=== PATIENT | male | born 1970 | race Caucasian/White ===

== ENCOUNTER 2017-02-17 21:56 | Emergency (ER) | payer BC ==
[2017-02-17] MEDS ORDERED: Ketorolac 60 MG/2 ML SDV IM ONE (22:11)
--- NOTE | 2017-02-17 22:13 | EDM.PDOC ---
<Loc Torres - Last Filed: 02/17/17 22:12> ED HPI GENERAL MEDICAL PROBLEM - General Chief Complaint: Lower Extremity Injury/Pain Stated Complaint: LEFT FOOT PAIN Time Seen by Provider: 02/17/17 22:12 Source of Information: Reports: Patient History Limitations: Reports: No Limitations - History of Present Illness INITIAL COMMENTS - FREE TEXT/NARRATIVE: History of present illness: [46-year-old male complaining of acute trauma to left foot. Indicated that he stepped out of his truck and he had a slip of the foot with a rolling motion heard a loud pop and now he has excruciating pain in his heel, ankle and midfoot.] Review of systems: As per history of present illness and below otherwise all systems reviewed and negative. Past medical history: As per history of present illness and as reviewed below otherwise noncontributory. Surgical history: As per history of present illness and as reviewed below otherwise noncontributory. Social history: No reported history of drug or alcohol abuse. Family history: As per history of present illness and as reviewed below otherwise noncontributory. Physical exam: HEENT: Atraumatic, normocephalic, pupils reactive, negative for conjunctival pallor or scleral icterus, mucous membranes moist, throat clear, neck supple, nontender, trachea midline. Lungs: Clear to auscultation, breath sounds equal bilaterally, chest nontender. Heart: S1S2, regular, negative for clicks, rubs, or JVD. Abdomen: Soft, nondistended, nontender. Negative for masses or hepatosplenomegaly. Negative for costovertebral tenderness. Pelvis: Stable nontender. Genitourinary: Deferred. Rectal: Deferred. Extremities: Left ankle with mild edema and tenderness to palpation, color sensation and temperature is intact with good pulses with guarding with active range of motion, negative for cords or calf pain. Neurovascular unremarkable. Neuro: Awake, alert, oriented. Cranial nerves II through XII unremarkable. Cerebellum unremarkable. Motor and sensory unremarkable throughout. Exam nonfocal. Diagnostics: [X-ray of left foot and ankle] Therapeutics: [Toradol 60 mg] Impression: [] Plan: [] Definitive disposition and diagnosis as appropriate pending reevaluation and review of above. left foot Pain Score (Numeric/FACES): 9 - Related Data Allergies Allergy/AdvReac Type Severity Reaction Status Date / Time No Known Allergies Allergy Verified 02/17/17 22:08 Home Meds: Home Meds Omeprazole Magnesium [Prilosec Otc] 1 tab PO DAILY 03/18/16 [History] amLODIPine Besylate [Norvasc] 2.5 mg PO DAILY 03/18/16 [History] Acetaminophen/HYDROcodone [[place] 325-10 MG] 2 tab PO Q6H 07/29/16 [History] Gabapentin [Neurontin] 100 mg PO TID 07/29/16 [History] traMADol [Ultram] 1 tab PO Q6H 07/29/16 [History] Past Medical History Cardiovascular History: Reports: Hypertension Musculoskeletal History: Reports: Back Pain, Chronic - Infectious Disease History Infectious Disease History: Reports: Chicken Pox - Past Surgical History Musculoskeletal Surgical History: Reports: Other (See Below) Social & Family History - Family History Family Medical History: Noncontributory - Tobacco Use Smoking Status *Q: Never Smoker Years of Tobacco use: 18 Packs/Tins Daily: 0.5 - Caffeine Use Caffeine Use: Reports: Soda - Recreational Drug Use Recreational Drug Use: No Review of Systems - Review of Systems Review Of Systems: See Below (History of present illness) ED EXAM, GENERAL - Physical Exam Exam: See Below (See history of present illness) Course - Vital Signs Last Recorded V/S: Last Vital Signs Temp 37.1 C 02/17/17 22:08 Pulse 108 H 02/17/17 22:08 Resp 18 02/17/17 22:08 BP 172/82 H 02/17/17 22:08 Pulse Ox 100 02/17/17 22:08 - Orders/Labs/Meds Orders: Active Orders 24 hr Category Date Time Status Ankle Min 3V Lt [CR] Stat Exams 02/17/17 22:11 Taken Foot 2V Lt [CR] Stat Exams 02/17/17 22:11 Taken DME for Discharge [COMM] Stat Oth 02/17/17 23:14 Ordered Meds: Medications Discontinued Medications Generic Name Dose Route Start Last Admin Trade Name Thomasq PRN Reason Stop Dose Admin Ketorolac Tromethamine 60 mg 02/17/17 22:11 02/17/17 22:22 Toradol IM 02/17/17 22:12 60 mg ONETIME ONE Administration Departure - Departure Disposition: Home, Self-Care 01 Clinical Impression: Foot contusion Qualifiers: Encounter type: initial encounter Laterality: right Qualified Code(s): S90.31XA - Contusion of right foot, initial encounter - Discharge Information Referrals: Grant Sanders MD [Primary Care Provider] - Forms: ED Department Discharge Additional Instructions: The following information is given to patients seen in the emergency department who are being discharged to home. This information is to outline your options for follow-up care. We provide all patients seen in our emergency department with a follow-up referral. The need for follow-up, as well as the timing and circumstances, are variable depending upon the specifics of your emergency department visit. If you don't have a primary care physician on staff, we will provide you with a referral. We always advise you to contact your personal physician following an emergency department visit to inform them of the circumstance of the visit and for follow-up with them and/or the need for any referrals to a consulting specialist. The emergency department will also refer you to a specialist when appropriate. This referral assures that you have the opportunity for followup care with a specialist. All of these measure are taken in an effort to provide you with optimal care, which includes your followup. Under all circumstances we always encourage you to contact your private physician who remains a resource for coordinating your care. When calling for followup care, please make the office aware that this follow-up is from your recent emergency room visit. If for any reason you are refused follow-up, please contact the [facility] emergency department at and ask to speak to the emergency department charge nurse. [facility] Primary care- Internal Medicine and Family Prctice [address] [place] [address] [address] Biju Taylor [address] [address] Specialty clinic- Podiatry [address] [place] [address] Fax: [phone] Ice and elevate the area. Where ortho boot and use crutches and do not weight- bear until you follow-up with the dishwasher busser. Remove the ortho boot as sleep times. Please take medications as needed for pain. Please call and follow-up with one of our podiatrists for further care and evaluation as we discussed. Do not weight-bear on the area and to your followed up as a specialist. Return to ER as needed and as discussed Use [id number] ibuprofen/Motrin for pain and at the tramadol you are prescribed viaI nsty Meds - My Orders Last 24 Hours: My Active Orders 02/17/17 23:14 DME for Discharge [COMM] Stat - Assessment/Plan Last 24 Hours: My Active Orders 02/17/17 23:14 DME for Discharge [COMM] Stat <Roseann Ha - Last Filed: 02/17/17 23:16> ED HPI GENERAL MEDICAL PROBLEM - History of Present Illness INITIAL COMMENTS - FREE TEXT/NARRATIVE: This is Dr. Ha dictating an addendum note as I am assuming care of this patient. Agree with history of physical as above and the patient states when he was getting out of his truck he impacted the heel more heavily than usual and then rolled his foot and ankle. He feels that the pain currently is more localized to the heel of the foot rather than the ankle and there is no metatarsal tenderness. He has no neurovascular changes in the foot and he has no proximal leg knee hip or thigh pain. X-rays of the ankle and foot have been done and are pending. We will review these results and discuss care plan from there X-ray reports have been reviewed by me and the patient will be given crutches and an orthopedic boot. I will prescribe some tramadol for home as well as advised ibuprofen use. I will give referrals for podiatry. Impression: Foot contusion Review of Systems - Review of Systems Review Of Systems: ROS reveals no pertinent complaints other than HPI. Departure - Departure Time of Disposition: 23:15 Condition: Good - My Orders Last 24 Hours: My Active Orders 02/17/17 23:14 DME for Discharge [COMM] Stat - Assessment/Plan Last 24 Hours: My Active Orders 02/17/17 23:14 DME for Discharge [COMM] Stat
[2017-02-18 00:11] VITALS: BP 138/74
--- NOTE | 2017-02-19 13:21 | CR ---
EXAM DATE: 02/17/17 PATIENT'S AGE: 46 Patient: ANA ZUNIGA Facility: [place], [place] Site . Site : 1970 Study: XRay Extremity Left foot [id number]/17/2017 10:42:11 PM Ordering Physician: Doctor Howell Final Report: INDICATION: pain, pt states twisted ankle/foot TECHNIQUE: Foot radiograph 2 views left COMPARISON: None FINDINGS: Bones: Alignment is normal. No acute fractures or aggressive bone lesions identified. Joint spaces: Unremarkable. No ankle effusion is seen. Soft tissues: Unremarkable. Kager`s fat pad is normal in appearance. The visualized Achilles` tendon is unremarkable. No radiopaque foreign bodies are seen. IMPRESSION: 1. No acute osseous injuries are noted. Dictated by: Anil Villarreal MD @ 02/17/2017 23:07:36 (Electronic Signature) Report Signed by Proxy. JJ
--- NOTE | 2017-02-19 13:22 | CR ---
EXAM DATE: 02/17/17 PATIENT'S AGE: 46 Patient: ANA ZUNIGA Facility: [place], [place] Site . Site : 1970 Study: XRay Extremity Left ANKLE [id number]/17/2017 10:44:20 PM Ordering Physician: Doctor Howell Final Report: INDICATION: PT STATES PAIN, TWISTED ANKLE/FOOT TONIGHT GETTING OUT OF TRUCK INDICATION: Left ankle pain. TECHNIQUE: Three view. FINDINGS: No acute fracture is seen of the left ankle. The mortise appears to be in good position. Articular surfaces appear to be preserved. Calcaneal spurring is incidentally noted. IMPRESSION: No acute fracture dislocation is identified of the left ankle. Dictated by Alfa Pruitt MD @ 02/17/2017 11:14:01 PM Dictated by: Alfa Pruitt MD @ 02/17/2017 23:14:13 (Electronic Signature) Report Signed by Proxy. JJ
== END 2017-02-17 23:33 | disposition home or self-care (01) ==
LOC: MW.ED 21:56
DX: S90.32XA Contusion of left foot, initial encounter (principal); I10 Essential (primary) hypertension; Z79.899 Other long term (current) drug therapy; X58.XXXA Exposure to other specified factors, initial encounter
CPT/HCPCS: 73610; 73620; 96372; 99283; J1885

== ENCOUNTER 2017-04-07 21:59 | Emergency (ER) | payer BC ==
[2017-04-07] MEDS ORDERED: Ketorolac 60 MG/2 ML SDV IM ONE (22:21)
[2017-04-07] MEDS ORDERED: HYDROmorphone 1 MG/ML Syringe IM ONE (22:22)
[2017-04-08 06:11] VITALS: BP 141/88
--- NOTE | 2017-04-09 12:16 | CR ---
EXAM DATE: 04/07/17 PATIENT'S AGE: 46 Patient: ANA ZUNIGA Facility: [place], [place] Site . Site : 1970 Study: XRay Extremity Left [id number]/5/2017 10:55:36 PM Ordering Physician: Donald Mccann Final Report: Indication: Fall Technique: Three views left ankle Comparison: March 19, 2017 Findings/impression: There has been interval fracture of a posterior calcaneal enthesophyte with mild cephalad migration. Correlation with focal pain or tenderness at this site is recommended to determine acuity. There does appear to be some mild soft tissue stranding in this region. A small inferior calcaneal enthesophyte is also noted. Remainder of the osseous structures are intact. The ankle mortise is normal. Dictated by Karli Naik MD @ Apr 07 2017 11:13PM (Electronic Signature) Report Signed by Proxy. JJ
--- NOTE | 2017-04-09 12:17 | CR ---
EXAM DATE: 04/07/17 PATIENT'S AGE: 46 Patient: ANA ZUNIGA Facility: [place], [place] Site . Site : 1970 Study: XRay Extremity Left [id number]/5/2017 10:55:59 PM Ordering Physician: Donald Mccann Final Report: Indication: Ankle injury Technique: Three views left foot Comparison: February 17, 2017 Findings/impression. : Again seen is a fracture of the posterior calcaneal enthesophytes with mild cephalad migration and mild surrounding soft tissue swelling. This is concerning for an acute fracture, likely an avulsion fracture involving the Achilles tendon. Correlation with focal pain or tenderness at this site is recommended. A small inferior calcaneal enthesophyte is also noted. The remainder of the osseous structures of the foot are intact. Dictated by Karli Naik MD @ Apr 07 2017 11:20PM (Electronic Signature) Report Signed by Proxy. JJ
== END 2017-04-08 00:38 | disposition home or self-care (01) ==
LOC: MW.ED 21:59
DX: S92.002A Unspecified fracture of left calcaneus, initial encounter for closed fracture (principal); W17.2XXA Fall into hole, initial encounter
CPT/HCPCS: 73610; 73630; 96372; 99283; J1170; J1885

== ENCOUNTER 2017-10-22 21:03 | Observation (INO) | payer BC ==
[2017-10-22] MEDS ORDERED: Ketorolac 30 MG/ML SDV IVPUSH ONE (21:20)
[2017-10-22] MEDS ORDERED: Ondansetron 4 MG/2 ML SDV IVPUSH ONE (21:20)
--- NOTE | 2017-10-22 21:25 | EDM.PDOC ---
<Ramy Juarez - Last Filed: 10/22/17 22:15> ED HPI GENERAL MEDICAL PROBLEM - General Chief Complaint: General Stated Complaint: PT HAS DIFFICULTY BREATHING Time Seen by Provider: 10/22/17 21:21 - History of Present Illness INITIAL COMMENTS - FREE TEXT/NARRATIVE: Patient's chest x-ray demonstrated right-sided pneumonia Levaquin was ordered 750 mg IV patient be admitted as 22 her observation he remains hemodynamically stable patient was given Motrin for his fever body Pain Score (Numeric/FACES): 8 - Related Data Allergies Allergy/AdvReac Type Severity Reaction Status Date / Time No Known Allergies Allergy Verified 10/22/17 21:32 Home Meds: Home Meds Omeprazole Magnesium [Prilosec Otc] 40 mg PO DAILY 03/18/16 [History] amLODIPine Besylate [Norvasc] 10 mg PO DAILY 03/18/16 [History] traMADol [Ultram] 50 mg PO Q6H PRN 07/29/16 [History] Oseltamivir [Tamiflu] 75 mg PO BID 10/22/17 [History] Hydrocodone/Acetaminophen [[place] 7.5-325 Tablet] 1 each PO ASDIRECTED PRN [History] Levofloxacin [Levaquin] 750 mg PO DAILY #7 tablet 10/23/17 [Rx] Phentermine HCl 37.5 mg PO DAILY 10/23/17 [History] ED ROS GENERAL - Review of Systems Review Of Systems: ROS reveals no pertinent complaints other than HPI. ED EXAM, GENERAL - Physical Exam Exam: See Below (See dictation) Course - Vital Signs Last Recorded V/S: Last Vital Signs Temp 98.1 F 10/23/17 11:00 Pulse 87 10/23/17 11:00 Resp 18 10/23/17 11:00 BP 116/63 10/23/17 11:00 Pulse Ox 95 10/23/17 11:00 - Orders/Labs/Meds Labs: Laboratory Tests 10/22/17 10/22/17 10/22/17 Range/Units 21:44 21:44 21:44 WBC 5.55 (4.0-11.0) K/uL RBC 4.35 L (4.50-5.90) M/uL Hgb 13.5 (13.0-17.0) g/dL Hct 39.7 (38.0-50.0) % MCV 91.3 (80.0-98.0) fL MCH 31.0 (27.0-32.0) pg MCHC 34.0 (31.0-37.0) g/dL RDW Std Deviation 49.6 (28.0-62.0) fl RDW Coeff of Italo 15 (11.0-15.0) % Plt Count 220 (150-400) K/uL MPV 9.50 (7.40-12.00) fL Neut % (Auto) 78.0 (48.0-80.0) % Lymph % (Auto) 9.5 L (16.0-40.0) % [place] % (Auto) 10.5 (0.0-15.0) % Eos % (Auto) 1.6 (0.0-7.0) % Baso % (Auto) 0.4 (0.0-1.5) % Neut # (Auto) 4.3 (1.4-5.7) K/uL Lymph # (Auto) 0.5 L (0.6-2.4) K/uL [place] # (Auto) 0.6 (0.0-0.8) K/uL Eos # (Auto) 0.1 (0.0-0.7) K/uL Baso # (Auto) 0.0 (0.0-0.1) K/uL Nucleated RBC % 0.0 /100WBC Nucleated RBCs # 0 K/uL Lactate 2.0 (0.20-2.00) mmol/L Sodium 139 (136-146) mmol/L Potassium 3.9 (3.5-5.1) mmol/L Chloride 107 (98-110) mmol/L Carbon Dioxide 23 (21-31) mmol/L BUN 6 (6.0-23.0) mg/dL Creatinine 0.7 (0.6-1.5) mg/dL Est Cr Clr Drug Dosing 146.27 mL/min Estimated GFR (MDRD) > 60.0 ml/min Glucose 122 H (60-110) mg/dL Calcium 9.2 (8.8-10.8) mg/dL Total Bilirubin 0.6 (0.1-1.5) mg/dL AST 37 (5-40) IU/L ALT 42 (8-54) IU/L Alkaline Phosphatase 103 (40-150) Troponin I < 0.10 (0.0-0.29) NG/ML Total Protein 6.9 (6.0-8.0) g/dL Albumin 4.0 (3.5-5.0) g/dL Globulin 2.9 (2.0-3.5) g/dL Albumin/Globulin Ratio 1.4 (1.3-2.8) Meds: Medications Discontinued Medications Generic Name Dose Route Start Last Admin Trade Name Freq PRN Reason Stop Dose Admin Acetaminophen 650 mg 10/23/17 00:05 10/23/17 04:26 Tylenol PO 650 mg Q4H PRN Administration Fever Sodium Chloride 500 mls @ 999 mls/hr 10/22/17 21:30 10/22/17 21:42 Normal Saline IV 999 mls/hr STAT GOMEZ Administration Levofloxacin/Dextrose 750 mg/ 150 mls @ 100 mls/hr 10/22/17 22:13 10/22/17 22 :28 Premix IV 10/22/17 23:42 100 mls/hr ONETIME ONE Administration Sodium Chloride 1,000 mls @ 125 mls/hr 10/23/17 00:15 Normal Saline IV ASDIRECTED GOMEZ Sodium Chloride 1,000 mls @ 125 mls/hr 10/23/17 00:15 10/23/17 08:15 Normal Saline IV 125 mls/hr ASDIRECTED GOMEZ Administration Levofloxacin/Dextrose 750 mg/ 150 mls @ 100 mls/hr 10/23/17 22:00 Premix IV Q24H GOMEZ Ibuprofen 800 mg 10/22/17 21:54 10/22/17 22:11 Motrin PO 10/22/17 21:55 800 mg ONETIME ONE Administration Ibuprofen 400 mg 10/23/17 10:06 Motrin PO Q6H PRN Pain Ketorolac Tromethamine 30 mg 10/22/17 21:20 10/22/17 21:42 Toradol IVPUSH 10/22/17 21:21 30 mg ONETIME ONE Administration Omeprazole 40 mg 10/23/17 09:00 10/23/17 09:21 Omeprazole PO 40 mg DAILY GOMEZ Administration Ondansetron HCl 4 mg 10/22/17 21:20 10/22/17 21:41 Zofran IVPUSH 10/22/17 21:21 4 mg ONETIME ONE Administration Tramadol HCl 50 mg 10/23/17 00:06 10/23/17 08:10 Ultram PO 50 mg Q6H PRN Administration Pain Departure - Departure Time of Disposition: 22:17 Disposition: Refer to Observation Condition: Good Clinical Impression: Pneumonia - Discharge Information <Ama Atkinson - Last Filed: 10/31/17 10:12> ED HPI GENERAL MEDICAL PROBLEM - General Source of Information: Reports: Patient History Limitations: Reports: No Limitations - History of Present Illness INITIAL COMMENTS - FREE TEXT/NARRATIVE: HISTORY AND PHYSICAL: History of present illness: Patient is a 47-year-old male who presents to the emergency room by EMS with complaints of flulike symptoms. States Sunday morning started to have some lower extremity swelling, nausea, vomiting, cough and intermittent fevers. 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 He was sent home and unable to keep this medication down. states that when she got home from work she tried to get him to take Tylenol and the second dose of Tamiflu. Reports that he was "so weak he couldn't get him out of bed", that she had to call EMS for transport to the emergency room. Reports medical history of high blood pressure, "mild heart attack", Review of systems: As per history of present illness and below otherwise all systems reviewed and negative. Past medical history: As per history of present illness and as reviewed below otherwise noncontributory. Surgical history: As per history of present illness and as reviewed below otherwise noncontributory. Social history: No reported history of drug or alcohol abuse. Family history: As per history of present illness and as reviewed below otherwise noncontributory. Physical exam: General: Well-developed and well-nourished 47-year-old male. Alert and oriented. Nontoxic appearing and in no acute distress. HEENT: Atraumatic, normocephalic, pupils reactive, negative for conjunctival pallor or scleral icterus, mucous membranes moist, throat clear, neck supple, nontender, trachea midline. Lungs: Fine expiratory wheezing noted to right posterior base otherwise clear, breath sounds equal bilaterally, chest nontender. Dry nonproductive cough noted. Heart: S1S2, regular rate and rhythm Abdomen: Soft, obese, nondistended, nontender. Negative for masses or hepatosplenomegaly. Negative for costovertebral tenderness. Pelvis: Stable nontender. Genitourinary: Deferred. Rectal: Deferred. Extremities: Atraumatic, moves all extremities per self without difficulty or deficits, negative for cords or calf pain. +1 pitting edema bilaterally to lower extremities. Capillary refill less than 3 seconds. Neurovascular unremarkable. Skin: Intact, warm, dry. Neuro: Awake, alert, oriented. Cranial nerves II through XII unremarkable. Cerebellum unremarkable. Motor and sensory unremarkable throughout. Exam nonfocal. Diagnostics: CBC, CMP, Tro, EKG, CXR, Therapeutics: IV fluid, Motrin, Levaquin Impression: Pneumonia Plan: Admission to med/surg Definitive disposition and diagnosis as appropriate pending reevaluation and review of above. Duration: Day(s): Past Medical History - Past Health History Medical/Surgical History: Denies Medical/Surgical History Cardiovascular History: Reports: Hypertension Musculoskeletal History: Reports: Back Pain, Chronic - Infectious Disease History Infectious Disease History: Reports: Chicken Pox - Past Surgical History Other Musculoskeletal Surgeries/Procedures:: 2 back surgery, right arm surgery Social & Family History - Family History Family Medical History: Noncontributory - Tobacco Use Smoking Status *Q: Current Every Day Smoker Years of Tobacco use: 15 Packs/Tins Daily: 0.5 - Caffeine Use Caffeine Use: Reports: Soda Caffeine Use Comment: 2drinks/day - Recreational Drug Use Recreational Drug Use: No ED ROS GENERAL - Review of Systems Review Of Systems: ROS reveals no pertinent complaints other than HPI. ED EXAM, GENERAL - Physical Exam Exam: See Below Course - Vital Signs Last Recorded V/S: Last Vital Signs Temp 98.1 F 10/23/17 11:00 Pulse 87 10/23/17 11:00 Resp 18 10/23/17 11:00 BP 116/63 10/23/17 11:00 Pulse Ox 95 10/23/17 11:00 - Orders/Labs/Meds Labs: Laboratory Tests 10/22/17 10/22/17 10/22/17 Range/Units 21:44 21:44 21:44 WBC 5.55 (4.0-11.0) K/uL RBC 4.35 L (4.50-5.90) M/uL Hgb 13.5 (13.0-17.0) g/dL Hct 39.7 (38.0-50.0) % MCV 91.3 (80.0-98.0) fL MCH 31.0 (27.0-32.0) pg MCHC 34.0 (31.0-37.0) g/dL RDW Std Deviation 49.6 (28.0-62.0) fl RDW Coeff of [place] 15 (11.0-15.0) % Plt Count 220 (150-400) K/uL MPV 9.50 (7.40-12.00) fL Neut % (Auto) 78.0 (48.0-80.0) % Lymph % (Auto) 9.5 L (16.0-40.0) % [place] % (Auto) 10.5 (0.0-15.0) % Eos % (Auto) 1.6 (0.0-7.0) % Baso % (Auto) 0.4 (0.0-1.5) % Neut # (Auto) 4.3 (1.4-5.7) K/uL Lymph # (Auto) 0.5 L (0.6-2.4) K/uL [place] # (Auto) 0.6 (0.0-0.8) K/uL Eos # (Auto) 0.1 (0.0-0.7) K/uL Baso # (Auto) 0.0 (0.0-0.1) K/uL Nucleated RBC % 0.0 /100WBC Nucleated RBCs # 0 K/uL Lactate 2.0 (0.20-2.00) mmol/L Sodium 139 (136-146) mmol/L Potassium 3.9 (3.5-5.1) mmol/L Chloride 107 (98-110) mmol/L Carbon Dioxide 23 (21-31) mmol/L BUN 6 (6.0-23.0) mg/dL Creatinine 0.7 (0.6-1.5) mg/dL Est Cr Clr Drug Dosing 146.27 mL/min Estimated GFR (MDRD) > 60.0 ml/min Glucose 122 H (60-110) mg/dL Calcium 9.2 (8.8-10.8) mg/dL Total Bilirubin 0.6 (0.1-1.5) mg/dL AST 37 (5-40) IU/L ALT 42 (8-54) IU/L Alkaline Phosphatase 103 (40-150) Troponin I < 0.10 (0.0-0.29) NG/ML Total Protein 6.9 (6.0-8.0) g/dL Albumin 4.0 (3.5-5.0) g/dL Globulin 2.9 (2.0-3.5) g/dL Albumin/Globulin Ratio 1.4 (1.3-2.8) Meds: Medications Discontinued Medications Generic Name Dose Route Start Last Admin Trade Name Freq PRN Reason Stop Dose Admin Acetaminophen 650 mg 10/23/17 00:05 10/23/17 04:26 Tylenol PO 650 mg Q4H PRN Administration Fever Sodium Chloride 500 mls @ 999 mls/hr 10/22/17 21:30 10/22/17 21:42 Normal Saline IV 999 mls/hr STAT GOMEZ Administration Levofloxacin/Dextrose 750 mg/ 150 mls @ 100 mls/hr 10/22/17 22:13 10/22/17 22 :28 Premix IV 10/22/17 23:42 100 mls/hr ONETIME ONE Administration Sodium Chloride 1,000 mls @ 125 mls/hr 10/23/17 00:15 Normal Saline IV ASDIRECTED GOMEZ Sodium Chloride 1,000 mls @ 125 mls/hr 10/23/17 00:15 10/23/17 08:15 Normal Saline IV 125 mls/hr ASDIRECTED GOMEZ Administration Levofloxacin/Dextrose 750 mg/ 150 mls @ 100 mls/hr 10/23/17 22:00 Premix IV Q24H GOMEZ Ibuprofen 800 mg 10/22/17 21:54 10/22/17 22:11 Motrin PO 10/22/17 21:55 800 mg ONETIME ONE Administration Ibuprofen 400 mg 10/23/17 10:06 Motrin PO Q6H PRN Pain Ketorolac Tromethamine 30 mg 10/22/17 21:20 10/22/17 21:42 Toradol IVPUSH 10/22/17 21:21 30 mg ONETIME ONE Administration Omeprazole 40 mg 10/23/17 09:00 10/23/17 09:21 Omeprazole PO 40 mg DAILY GOMEZ Administration Ondansetron HCl 4 mg 10/22/17 21:20 10/22/17 21:41 Gloria IVPUSH 10/22/17 21:21 4 mg ONETIME ONE Administration Tramadol HCl 50 mg 10/23/17 00:06 10/23/17 08:10 Ultram PO 50 mg Q6H PRN Administration Pain Departure - Departure Condition: Good
[2017-10-22] MEDS ORDERED: Sodium Chloride 0.9% 500 ML IV SCH (21:30)
[2017-10-22] MEDS ORDERED: Ibuprofen 800 MG Tab PO ONE (21:54)
[2017-10-22 22:13] LABS: CHLORIDE,CL 107 mmol/L (98-110); SODIUM,NA 139 mmol/L (136-146)
[2017-10-22] MEDS ORDERED: Levofloxacin/Dextrose 5%-Water 750 MG in Premix Bag 1 BAG IV ONE (22:13)
[2017-10-23] MEDS: Sodium Chloride 0.9% 1,000 ML IV SCH ×2 (00:15→08:15)
[2017-10-23] MEDS ORDERED: Sodium Chloride 0.9% 1,000 ML IV SCH (00:15)
[2017-10-23] MEDS: Acetaminophen 325 MG Tab PO PRN ×2 (00:20→04:26)
[2017-10-23] MEDS: traMADol 50 MG Tab PO PRN ×2 (01:55→08:10)
[2017-10-23 05:40] LABS: CHLORIDE,CL 108 mmol/L (98-110); SODIUM,NA 140 mmol/L (136-146)
--- NOTE | 2017-10-23 08:08 | PCM.HP ---
H&P History of Present Illness - General Date of Service: 10/23/17 Admit Problem/Dx: Admission Diagnosis/Problem Admission Diagnosis/Problem Pneumonia Source of Information: Patient History Limitations: Reports: No Limitations body Pain Score (Numeric/FACES): 8 - Related Data Allergies/Adverse Reactions: Allergies Allergy/AdvReac Type Severity Reaction Status Date / Time No Known Allergies Allergy Verified 10/22/17 21:32 Home Medications: Home Meds Omeprazole Magnesium [Prilosec Otc] 40 mg PO DAILY 03/18/16 [History] amLODIPine Besylate [Norvasc] 10 mg PO DAILY 03/18/16 [History] traMADol [Ultram] 50 mg PO Q6H PRN 07/29/16 [History] Cephalexin [Keflex] 500 mg PO TID 10/22/17 [History] Oseltamivir [Tamiflu] 75 mg PO BID 10/22/17 [History] Past Medical History - Past Health History Medical/Surgical History: Denies Medical/Surgical History Cardiovascular History: Reports: Hypertension Other Cardiovascular History: "mild heart attack, angioplasty 6yrs ago" Gastrointestinal History: Reports: GERD Musculoskeletal History: Reports: Back Pain, Chronic - Infectious Disease History Infectious Disease History: Reports: Chicken Pox - Past Surgical History GI Surgical History: Reports: None Other Musculoskeletal Surgeries/Procedures:: 2 back surgery, right arm surgery, left hand surgery, left foot achilles tendon repair Social & Family History - Family History Family Medical History: Noncontributory - Tobacco Use Smoking Status *Q: Former Smoker Years of Tobacco use: 20 Packs/Tins Daily: 0.5 Used Tobacco, but Quit: Yes Month Tobacco Last Used: 4 years ago Second Hand Smoke Exposure: No - Caffeine Use Caffeine Use: Reports: Soda Caffeine Use Comment: 2drinks/day - Recreational Drug Use Recreational Drug Use: No Exam - Vital Signs Vital Signs: Last Vital Signs Temp 100.1 F 10/23/17 07:18 Pulse 99 10/23/17 07:18 Resp 18 10/23/17 07:18 BP 142/75 H 10/23/17 07:18 Pulse Ox 93 L 10/23/17 07:18 Weight: 146.2 kg - Patient Data Lab Results Last 24 hrs: Laboratory Results - last 24 hr 10/23/17 10/23/17 Range/Units 05:18 05:18 WBC 4.99 (4.0-11.0) K/uL RBC 4.22 L (4.50-5.90) M/uL Hgb 13.0 (13.0-17.0) g/dL Hct 38.8 (38.0-50.0) % MCV 91.9 (80.0-98.0) fL MCH 30.8 (27.0-32.0) pg MCHC 33.5 (31.0-37.0) g/dL RDW Std Deviation 50.2 (28.0-62.0) fl RDW Coeff of [place] 15 (11.0-15.0) % Plt Count 210 (150-400) K/uL MPV 9.50 (7.40-12.00) fL Neut % (Auto) 74.2 (48.0-80.0) % Lymph % (Auto) 15.0 L (16.0-40.0) % [place] % (Auto) 9.0 (0.0-15.0) % Eos % (Auto) 1.4 (0.0-7.0) % Baso % (Auto) 0.4 (0.0-1.5) % Neut # (Auto) 3.7 (1.4-5.7) K/uL Lymph # (Auto) 0.8 (0.6-2.4) K/uL [place] # (Auto) 0.5 (0.0-0.8) K/uL Eos # (Auto) 0.1 (0.0-0.7) K/uL Baso # (Auto) 0.0 (0.0-0.1) K/uL Nucleated RBC % 0.0 /100WBC Nucleated RBCs # 0 K/uL Sodium 140 (136-146) mmol/L Potassium 3.9 (3.5-5.1) mmol/L Chloride 108 (98-110) mmol/L Carbon Dioxide 23 (21-31) mmol/L BUN 5 L (6.0-23.0) mg/dL Creatinine 0.7 (0.6-1.5) mg/dL Est Cr Clr Drug Dosing 141.93 mL/min Estimated GFR (MDRD) > 60.0 ml/min Glucose 111 H (60-110) mg/dL Calcium 8.4 L (8.8-10.8) mg/dL Result Diagrams: 10/23/17 05:18 10/23/17 05:18 *Q Meaningful Use (ADM) - VTE *Q VTE Criteria *Q: - Stroke *Q Stroke Criteria *Q: - AMI *Q AMI Criteria *Q: Orders Last 24hrs: Active Orders 24 hr Category Date Time Status Heart Healthy Diet [DIET] Diet 10/23/17 Breakfast Active Acetaminophen [Tylenol] Med 10/23/17 00:05 Active 650 mg PO Q4H PRN Levofloxacin/Dextrose 5%-Water [Levaquin in D5W 750 MG/ Med 10/23/17 22:00 Active 150 ML] 750 mg Premix Bag 1 bag IV Q24H Omeprazole Magnesium [Prilosec Otc] Med 10/23/17 09:00 Ordered 40 mg PO DAILY Sodium Chloride 0.9% [Normal Saline] 1,000 ml Med 10/23/17 00:15 Active IV ASDIRECTED traMADol [Ultram] Med 10/23/17 00:06 Active 50 mg PO Q6H PRN Medication Orders Acetaminophen (Tylenol) 650 mg PO Q4H PRN PRN Reason: Fever Last Admin: 10/23/17 04:26 Dose: 650 mg Admin: 10/23/17 00:20 Dose: 650 mg Sodium Chloride (Normal Saline) 500 mls @ 999 mls/hr IV STAT GOMEZ Last Admin: 10/22/17 21:42 Dose: 999 mls/hr Sodium Chloride (Normal Saline) 1,000 mls @ 125 mls/hr IV ASDIRECTED GOMEZ Last Admin: 10/23/17 00:15 Dose: 125 mls/hr Levofloxacin/Dextrose 750 mg/ (Premix) 150 mls @ 100 mls/hr IV Q24H GOMEZ Non-Formulary Medication (Omeprazole Magnesium [Prilosec Otc]) 40 mg PO DAILY GOMEZ Tramadol HCl (Ultram) 50 mg PO Q6H PRN PRN Reason: Pain Last Admin: 10/23/17 01:55 Dose: 50 mg
[2017-10-23] MEDS ORDERED: Omeprazole 20 MG Cap.CR PO SCH (09:00)
[2017-10-23] MEDS ORDERED: Ibuprofen 400 MG Tab PO PRN (10:06)
--- NOTE | 2017-10-23 10:47 | PCM.HP ---
H&P History of Present Illness - General Admit Problem/Dx: Admission Diagnosis/Problem Admission Diagnosis/Problem Pneumonia - History of Present Illness Initial Comments - Free Text/Narative: 47 yo male who presents with three day history of cough, fever, and myalgias. He has been on tamilfu. He reports worsening of his symptoms. In the ED he was noted tohave a right upper lobe opacity. body Pain Score (Numeric/FACES): 8 - Related Data Allergies/Adverse Reactions: Allergies Allergy/AdvReac Type Severity Reaction Status Date / Time No Known Allergies Allergy Verified 10/22/17 21:32 Home Medications: Home Meds Omeprazole Magnesium [Prilosec Otc] 40 mg PO DAILY 03/18/16 [History] amLODIPine Besylate [Norvasc] 10 mg PO DAILY 03/18/16 [History] traMADol [Ultram] 50 mg PO Q6H PRN 07/29/16 [History] Oseltamivir [Tamiflu] 75 mg PO BID 10/22/17 [History] Hydrocodone/Acetaminophen [[place] 7.5-325 Tablet] 1 each PO ASDIRECTED PRN [History] Levofloxacin [Levaquin] 750 mg PO DAILY #7 tablet 10/23/17 [Rx] Phentermine HCl 37.5 mg PO DAILY 10/23/17 [History] Past Medical History - Past Health History Medical/Surgical History: Denies Medical/Surgical History Cardiovascular History: Reports: Hypertension Other Cardiovascular History: "mild heart attack, angioplasty 6yrs ago" Gastrointestinal History: Reports: GERD Musculoskeletal History: Reports: Back Pain, Chronic - Infectious Disease History Infectious Disease History: Reports: Chicken Pox - Past Surgical History GI Surgical History: Reports: None Other Musculoskeletal Surgeries/Procedures:: 2 back surgery, right arm surgery, left hand surgery, left foot achilles tendon repair Social & Family History - Family History Family Medical History: Noncontributory - Tobacco Use Smoking Status *Q: Former Smoker Years of Tobacco use: 20 Packs/Tins Daily: 0.5 Used Tobacco, but Quit: Yes Month Tobacco Last Used: 4 years ago Second Hand Smoke Exposure: No - Caffeine Use Caffeine Use: Reports: Soda Caffeine Use Comment: 2drinks/day - Recreational Drug Use Recreational Drug Use: No H&P Review of Systems - Review of Systems: Review Of Systems: ROS reveals no pertinent complaints other than HPI. Exam - Exam Exam: See Below - Vital Signs Vital Signs: Last Vital Signs Temp 37.8 C 10/23/17 07:18 Pulse 99 10/23/17 07:18 Resp 18 10/23/17 07:18 BP 142/75 H 10/23/17 07:18 Pulse Ox 93 L 10/23/17 07:18 Weight: 146.2 kg - Exam General: Alert, Oriented, 4 HEENT: Conjunctiva Clear Neck: No: JVD Lungs: Clear to Auscultation, Normal Respiratory Effort Cardiovascular: Regular Rate, Regular Rhythm GI/Abdominal Exam: Normal Bowel Sounds, Soft, Non-Tender Extremities: Normal Inspection, Normal Range of Motion, Non-Tender Skin: Warm, Dry, Intact Neurological: Cranial Nerves Intact. No: Focal Deficit - Patient Data Lab Results Last 24 hrs: Laboratory Results - last 24 hr 10/23/17 10/23/17 Range/Units 05:18 05:18 WBC 4.99 (4.0-11.0) K/uL RBC 4.22 L (4.50-5.90) M/uL Hgb 13.0 (13.0-17.0) g/dL Hct 38.8 (38.0-50.0) % MCV 91.9 (80.0-98.0) fL MCH 30.8 (27.0-32.0) pg MCHC 33.5 (31.0-37.0) g/dL RDW Std Deviation 50.2 (28.0-62.0) fl RDW Coeff of [place] 15 (11.0-15.0) % Plt Count 210 (150-400) K/uL MPV 9.50 (7.40-12.00) fL Neut % (Auto) 74.2 (48.0-80.0) % Lymph % (Auto) 15.0 L (16.0-40.0) % [place] % (Auto) 9.0 (0.0-15.0) % Eos % (Auto) 1.4 (0.0-7.0) % Baso % (Auto) 0.4 (0.0-1.5) % Neut # (Auto) 3.7 (1.4-5.7) K/uL Lymph # (Auto) 0.8 (0.6-2.4) K/uL [place] # (Auto) 0.5 (0.0-0.8) K/uL Eos # (Auto) 0.1 (0.0-0.7) K/uL Baso # (Auto) 0.0 (0.0-0.1) K/uL Nucleated RBC % 0.0 /100WBC Nucleated RBCs # 0 K/uL Sodium 140 (136-146) mmol/L Potassium 3.9 (3.5-5.1) mmol/L Chloride 108 (98-110) mmol/L Carbon Dioxide 23 (21-31) mmol/L BUN 5 L (6.0-23.0) mg/dL Creatinine 0.7 (0.6-1.5) mg/dL Est Cr Clr Drug Dosing 141.93 mL/min Estimated GFR (MDRD) > 60.0 ml/min Glucose 111 H (60-110) mg/dL Calcium 8.4 L (8.8-10.8) mg/dL Result Diagrams: 10/23/17 05:18 10/23/17 05:18 *Q Meaningful Use (ADM) - VTE *Q VTE Criteria *Q: - Stroke *Q Stroke Criteria *Q: - AMI *Q AMI Criteria *Q: Problem List Initiated/Reviewed/Updated: Yes Orders Last 24hrs: Active Orders 24 hr Category Date Time Status Ready for Discharge [RC] PER UNIT ROUTINE Care 10/23/17 10:42 Ordered Heart Healthy Diet [DIET] Diet 10/23/17 Breakfast Active Acetaminophen [Tylenol] Med 10/23/17 00:05 Active 650 mg PO Q4H PRN Ibuprofen [Motrin] Med 10/23/17 10:06 Active 400 mg PO Q6H PRN Levofloxacin/Dextrose 5%-Water [Levaquin in D5W 750 MG/ Med 10/23/17 22:00 Active 150 ML] 750 mg Premix Bag 1 bag IV Q24H Omeprazole Med 10/23/17 09:00 Active 40 mg PO DAILY Sodium Chloride 0.9% [Normal Saline] 1,000 ml Med 10/23/17 00:15 Active IV ASDIRECTED traMADol [Ultram] Med 10/23/17 00:06 Active 50 mg PO Q6H PRN Medication Orders Acetaminophen (Tylenol) 650 mg PO Q4H PRN PRN Reason: Fever Last Admin: 10/23/17 04:26 Dose: 650 mg Admin: 10/23/17 00:20 Dose: 650 mg Sodium Chloride (Normal Saline) 500 mls @ 999 mls/hr IV STAT COUNT INCLUDES THE [facility] Last Admin: 10/22/17 21:42 Dose: 999 mls/hr Sodium Chloride (Normal Saline) 1,000 mls @ 125 mls/hr IV ASDIRECTED COUNT INCLUDES THE [facility] Last Admin: 10/23/17 08:15 Dose: 125 mls/hr Infusion: 10/23/17 08:15 Dose: 125 mls/hr Admin: 10/23/17 00:15 Dose: 125 mls/hr Levofloxacin/Dextrose 750 mg/ (Premix) 150 mls @ 100 mls/hr IV Q24H COUNT INCLUDES THE [facility] Ibuprofen (Motrin) 400 mg PO Q6H PRN PRN Reason: Pain Omeprazole (Omeprazole) 40 mg PO DAILY COUNT INCLUDES THE [facility] Last Admin: 10/23/17 09:21 Dose: 40 mg Tramadol HCl (Ultram) 50 mg PO Q6H PRN PRN Reason: Pain Last Admin: 10/23/17 08:10 Dose: 50 mg Admin: 10/23/17 01:55 Dose: 50 mg Assessment/Plan Comment:: 47 yo male who was observed overnight for pneumonia. He was treated with IV fluids and Levaquin. Today the patient is feeling better and requesting discharge. Patient was discharged on levaquin 750mg daily and told to continue Tamiflu.
[2017-10-23 11:21] VITALS: BP 116/63
--- NOTE | 2017-10-23 15:17 | CR ---
EXAM DATE: 10/22/17 PATIENT'S AGE: 47 Patient: ANA ZUNIGA Facility: [place], [place] Site . Site : [id number] Study: XRay Chest [id number]/19/2018 10:11:20 PM Ordering Physician: Doctor Howell Final Report: INDICATION: Cough, chest pain, shortness of breath TECHNIQUE: Chest 1 view. COMPARISON: None FINDINGS: Cardiovascular and mediastinum: Heart size and vasculature are normal in caliber and appearance. Mediastinum is within normal limits. Lungs and pleural space: Right upper lobe airspace opacity consistent with pneumonia. No sign of pleural effusion. No pneumothorax. Bones and soft tissues: No significant findings. IMPRESSION: Right upper lobe airspace opacity consistent with pneumonia. Dictated by Brian Bartlett MD @ 10/22/2017 10:15:42 PM Dictated by: Brian Bartlett MD @ 10/22/2017 22:15:53 (Electronic Signature) Report Signed by Proxy. [facility]ITAL[facility]
[2017-10-23] MEDS ORDERED: Levofloxacin/Dextrose 5%-Water 750 MG in Premix Bag 1 BAG IV SCH (22:00)
== END 2017-10-23 12:09 | disposition home or self-care (01) ==
LOC: MW.ED 21:03 → MW.MS 22:18
PROVIDERS: ADMIT Internal Medicine; ATTEND Internal Medicine
DX: J18.9 Pneumonia, unspecified organism (principal); I10 Essential (primary) hypertension; I25.2 Old myocardial infarction; K21.9 Gastro-esophageal reflux disease without esophagitis; G89.29 Other chronic pain; M54.9 Dorsalgia, unspecified; Z79.899 Other long term (current) drug therapy; Z98.890 Other specified postprocedural states; Z87.891 Personal history of nicotine dependence; Z98.61 Coronary angioplasty status
CPT/HCPCS: 36415; 71046; 80048; 80053; 83605; 84484; 85025; 87040; 87804; 93005; 96361; 96365; 96375; 99285; A9270; G0378; J1885; J1956; J2405; J7040; 99283